=== PATIENT | male | born 1995 | race Asian ===

== ENCOUNTER 2023-08-26 16:13 | Emergency (ER) | payer MEDICAID ==
[~2023-08-26] VITALS: Ht 170.2 cm; Wt 65.5 kg
[2023-08-26 17:46] VITALS: BP 138/95; PULSE 69; RESP 16; O2SAT 100
[2023-08-26] MEDS ORDERED: bacitracin 15gm ointment TP ONE (18:50)
[2023-08-26] MEDS ORDERED: LIDOcaine 1%/PF 5ML 10 MG/ML VIAL SQ ONE (18:50)
[2023-08-26] MEDS ORDERED: ibuprofen 200mg tablet PO ONE (20:05)
[2023-08-26] MEDS ORDERED: CEPH500C3 PO (20:39)
[2023-08-26] MEDS ORDERED: IBUP-1984 PO (20:39)
[2023-08-26 20:49] VITALS: TEMP 98.7
== END 2023-08-26 20:58 | disposition home or self-care (01) ==
LOC: ER 16:13
DX: S61.212A Laceration without foreign body of right middle finger without damage to nail, initial encounter (principal); X58.XXXA Exposure to other specified factors, initial encounter; Y93.89 Activity, other specified; Y92.89 Other specified places as the place of occurrence of the external cause; Y99.8 Other external cause status
CPT/HCPCS: 12001; 73130; 99283; A4565; A6258; A6449

== ENCOUNTER 2023-09-05 08:43 | Emergency (ER) | payer MEDICAID ==
[~2023-09-05] VITALS: Ht 170.2 cm; Wt 64.7 kg
[~2023-09-05 08:43] MED LIST: CEPH500C3 PO; IBUP-1984 PO
[2023-09-05 09:57] VITALS: BP 152/112; PULSE 79; RESP 16; TEMP 98.2; O2SAT 99
== END 2023-09-05 09:58 | disposition home or self-care (01) ==
LOC: ER 08:44
DX: S61.212D Laceration without foreign body of right middle finger without damage to nail, subsequent encounter (principal); Z48.00 Encounter for change or removal of nonsurgical wound dressing; X58.XXXD Exposure to other specified factors, subsequent encounter
CPT/HCPCS: 99281